=== PATIENT | female | born 1950 | race Caucasian/White ===

== ENCOUNTER 2017-01-01 17:45 | Inpatient (IN) | payer OTHER ==
[~2017-01-01] VITALS: Ht 172.7 cm; Wt 124.8 kg
--- NOTE | ~2017-01-01 | H ---
[facility] [place] [address] HISTORY AND PHYSICAL Name: RHYS GUAN Room #: 410-P ADM IN M.R.#: [id number] Admission: 01/01/17 Attend Phys: Moo Norris Discharge: Date of : 54 Report #: [id number] THIS REPORT FOR: //name// CC: FAM physician/PCP Moo Norris DATE OF SERVICE: 01/01/2017 ATTENDING PHYSICIAN: Moo Norris MD PRIMARY CARE PHYSICIAN: Dr. Barrington Pendleton. CHIEF COMPLAINT: Abdominal pain and distention. HISTORY OF PRESENT ILLNESS: The patient is a 66-year-old obese female who felt well over the last few weeks. She says actually all summer along, she has had decreased appetite, but really has not been losing any weight, but actually gaining weight. She has noticed increasing swelling in her lower extremities that has extended up into her abdomen in the last few weeks. Her abdomen is very bloated and firm and tender. She says for the last week, her pain has been getting worse to the point she went to the ER at [place] to be evaluated. She has not eaten anything in 2 days or taken any of her medications because of the pain. She says she has basically been feeling weak all over and just lying in bed. She has been having chills, but she is not sure if she was having fevers. She has been feeling short of breath. She has also been having some liquid stools in the last 3 days. She has been having about 5 loose stools per day that are watery. She denies seeing any blood in her stools. Denies any recent antibiotic use. She has had some intermittent vomiting about once a week for the last few months. Her pain has not improved with taking antacids. The worst of her abdominal pain is mostly in the right upper quadrant and epigastric areas. She denied any history of ulcers or GI bleeding. She has had a prior cholecystectomy. She denied any history of liver problems. In the ER at [facility], she had an ultrasound done, which showed liver cirrhosis, so she was sent to [facility] for GI evaluation. PAST MEDICAL HISTORY: Diabetes, hyperlipidemia, hypothyroidism, DVT, hypertension, GERD. PAST SURGICAL HISTORY: Right below knee amputation and cholecystectomy. ALLERGIES: None. HOME MEDICATIONS: Simvastatin 20 mg p.o. at bedtime, Norvasc 5 mg p.o. daily, lisinopril 10 mg p.o. at bedtime, aspirin 81 mg p.o. daily, tramadol 50-100 mg q. 6 hours p.r.n., Neurontin 300 mg t.i.d., ReQuip 2 mg at bedtime, Protonix 40 mg p.o. daily, metformin 500 mg b.i.d., Lantus insulin 60 units at bedtime, [address] [address] HISTORY AND PHYSICAL Name: RHYS GUAN Room #: 410-P [facility] IN M.R.#: [id number] Admission: 01/01/17 Attend Phys: Moo Norris Discharge: Date of : 54 Report #: [id number] Humalog insulin sliding scale, glipizide 10 mg p.o. b.i.d., levothyroxine 0.75 mg p.o. daily, vitamin C 1 tab daily, multivitamin and calcium carbonate daily. SOCIAL HISTORY: The patient is a never smoker, never drinker. Denies any drug use. She lives at home alone. She does use a wheelchair to get around because of her prior amputation. She is retired. 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 FAMILY HISTORY: Significant for cancer and heart disease. REVIEW OF SYSTEMS: Twelve-point review of systems was reviewed with the patient, otherwise negative unless stated in the HPI. PHYSICAL EXAMINATION: GENERAL: The patient is an alert, obese female, in no acute distress. VITAL SIGNS: Temperature is 98.0, heart rate 93, respirations 20, blood pressure 132/72, oxygen 98% on room air. HEENT: PERRLA. Sclerae are nonicteric. Oral mucosa is pink and dry. NECK: No JVD noted. CARDIOVASCULAR: Normal S1, S2. No murmurs, rubs or gallops. RESPIRATORY: Breath sounds are clear bilateral upper lobes. She is diminished in both bases, but no crackles. Breathing is nonlabored. ABDOMEN: Obese and distended. She does have some slight swelling in the right upper quadrant above her cholecystectomy scar and in this area, she is more tender. There are hypoactive bowel sounds and the entire abdomen is tender, but no guarding. VASCULAR: Has 3+ left lower extremity edema. She has slight edema in her right thigh above her stump sock. The swelling does go up in to the abdomen. On her right lower extremity, she does have a BKA. Her pedal pulse on the left is 2+. NEUROLOGIC: The patient is alert and oriented x 3. Speech is clear. She is moving all extremities equally. No focal neuro deficits noted. LABORATORY DATA AND DIAGNOSTICS: Lab work done at [facility] showed a WBC of 8.16, hemoglobin 14.0, platelets 216. Sodium 140, potassium 4.2, BUN 24, creatinine 1.2, glucose 96, AST is 62, ALT 38, lipase 79, bilirubin is 1.2. Lactate is 1.9. Ammonia level was 40. Abdominal ultrasound done at [facility] showed an enlarged liver measuring 19.5 cm. The liver is slightly lobulated with homogenous, decreased echogenicity. No distinct masses are seen. There is a moderately large amount of ascites. The main portal vein demonstrates normal flow towards the liver. The gallbladder is surgically absent and abdominal x-ray with PA of the chest showed normal bowel gas pattern, no evidence of free air. The lungs and pleura were normal, no acute process. ASSESSMENT AND PLAN: 1. New onset liver cirrhosis with ascites. Etiology for this is unknown. The patient will need further evaluation. Gastroenterology will be consulted. We [facility] [address] [place] [address] HISTORY AND PHYSICAL Name: RHYS GUAN Room #: 410-[facility] IN .R.#: [id number] Admission: 01/01/17 Attend Phys: Moo Norris Discharge: Date of : 54 Report #: [id number] will order a diagnostic and therapeutic paracentesis for the morning. She does have diffuse tenderness, which could be spontaneous bacterial peritonitis, but she does not have any leukocytosis and she is currently afebrile, so we will hold off on IV antibiotics until we get the abdominal fluid culture. Also, check hepatitis panel and alpha fetoprotein. We will keep her n.p.o. for that procedure. We will also further evaluate with CT of the abdomen. 2. Diabetes. Blood sugar is stable. She really has not been eating much in the last few days, so we will hold her oral hypoglycemics and just continue insulin per sliding scale, and if she starts eating, resume Levemir as at home. 3. Hypertension. Blood pressure is stable. Continue home meds and monitor. 4. Hypothyroidism. Continue Synthroid as at home. 5. Hyperlipidemia. Hold statin therapy due to elevated liver enzymes. 6. Deep venous thrombosis prophylaxis. Add sequential compression device to her left lower extremity. We will continue to follow the patient closely throughout the hospitalization and make changes based on clinical status. <ELECTRONICALLY SIGNED> By: DEIDRA Uriostegui 01/02/17 0658 [id number] DEIDRA Uriostegui /valentin
--- NOTE | ~2017-01-01 | P ---
[facility] [place] [address] PROCEDURE REPORT Name: RHYS GUNA Room #: 410-P ADM IN M.R.#: [id number] Admission: 01/01/17 Attend Phys: Barrington Ayala DO Discharge: Date of : 54 Report #: [id number] THIS REPORT FOR: //name// CC: [facility] physician/PCP Barrington Ayala DO DATE OF SERVICE: 01/07/2017 PROCEDURE: EGD with snare polypectomies. PATIENT OF: Barrington Ayala DO INDICATION FOR PROCEDURE: This patient had heme positive stool and anemia of undetermined etiology. The patient has newly diagnosed cirrhosis and we are searching for possible esophageal varices that may need to be treated to prevent esophageal bleeding. Informed consent for this procedure was obtained prior to the administration of any medication. The risks of the procedure, which include bleeding, perforation, infection, complications of sedation, and the possibility I could miss something have been explained to the patient and she has indicated her consent by signing. Propofol was slowly titrated before and during this procedure for the patient comfort by the anesthesia service. The BONDn upper videoscope was introduced through the upper esophageal sphincter and advanced under direct visualization to the distal second portion of the duodenum. Findings are noted on withdrawal of the scope. The duodenum is normal throughout its entirety. Pylorus, normal mucosa except for a small pyloric channel polyp that was removed in toto with a hot snare and sent to pathology lab. In the antrum, there were 4 polyps, all 8 mm or less in size by my eye that were all removed in toto with a hot snare and sent to pathology lab. Good hemostasis was noted after all polypectomies and one of these did get away from us and then went down into the duodenum where I could not retrieve it, but the other 3 were sent to pathology lab as well. I think all of the polyps went in the same container. Body, normal mucosa. Cardia and fundus, normal mucosa. I saw no evidence of any gastric varices. The stomach fully distends with air insufflation. Retroflex view did not reveal any hiatal hernia. The scope was withdrawn into the esophagus. The Z-line is appropriately located at the top of the gastric folds and appears normal. The patient does have 2 grade 2 nonbleeding without any stigmata of recent bleed esophageal varices that extends approximately 10 cm up into the middle esophagus. These are not treated because she has never had a variceal bleed that we are aware of. Above this level in the medication esophagus, the esophageal mucosa appears normal. The scope was withdrawn. The patient went to the recovery area in stable condition. She tolerated the procedure well. [address] [address] PROCEDURE REPORT Name: RHYS GUAN Room #: 410-P [facility] IN M.R.#: [id number] Admission: 01/01/17 Attend Phys: Barrington Ayala DO Discharge: Date of : 54 Report #: [id number] IMPRESSION: 1. Grade 2 esophageal varices extending from the Z-line up to 30 cm in the mid esophagus. These are nonbleeding with no stigmata of recent bleed. 2. No evidence of gastric varices. 3. Five antral and pyloric polyps were removed as above with a hot snare. Four of these were recovered and sent to pathology lab. All of them were 8 mm or less in size. RECOMMENDATION: My recommendations were to await the path report. We will start her on a clear liquid diet because we are going to give her a colonoscopy prep today for possible colonoscopy tomorrow. She is agreeable with this plan. We will also schedule her for a large volume paracentesis tomorrow with albumin replacement of her volume with 12.5 grams of albumin per 2 liters of ascitic fluid removed, so that we do not injure her kidneys with volume shifting. Then, we will keep her n.p.o. after midnight. We will obtain a consent for colonoscopy by Dr. Luu and Renata Moraes is already done this for me. I would recommend starting her on a beta maine as prophylaxis against first variceal bleed if okay with Dr. Michaud who has been managing her renal situation. <ELECTRONICALLY SIGNED> By: Candelaria Lorenzana DO 01/07/17 2018 1446 1732 Candelaria Lorenzana DO /nt
--- NOTE | ~2017-01-01 | S ---
[facility] [address] [place] [address] SURGICAL PATH RPT PROCEDURE Name: LALI GUAN Room #: 410-P DIS IN M.R.#: [id number] Admission: 01/01/17 Date of : 54 Discharge: 01/11/17 Report #: [id number] Path Case #: [id number] PATHOLOGY REPORT COLLECTION DATE: 01/07/2017 RECEIVED DATE: 01/08/2017 SUBMITTING PHYS: Dr. Candelaria Lorenzana OTHER PHYS: Dr. Barrington Norris * AMENDED (CORRECTED) REPORT * ADDENDUM REPORT (Order Date: 01/14/2017 12:39) ADDENDUM COMMENT: A properly controlled immunohistochemical stain is performed. AE1/AE3 (block A1): no abnormal staining The final diagnosis remains unchanged. (CLW:; 01/14/2017) Professional services performed by [facility] at [facility] [address] [place] [address] Technical services performed by [facility] at [address] [place] [address], [address] [place] [address]. ELECTRONICALLY SIGNED BY: Juliet Gutierrez M.D. DATE/TIME:01/14/2017 14:49 SPECIMEN(S) RECEIVED: A.Gastric polyps * * * * * * * * * * * * FINAL DIAGNOSIS: 01/13/2017 AMENDED REPORT: This amendment is issued to correct the date of . The remainder of the report remains unchanged. "Gastric polyps", biopsy: - Gastric fundic gland polyps, multiple, with extensive foveolar hyperplasia and reactive changes, irritated and focally ulcerated with numerous lamina propria focally congested blood vessels and focal intestinal metaplasia; no dysplasia seen. (See comment.) COMMENT: Deeper sections are performed. An immunohistochemical stain is also performed. A1/A3 (block A1) - pending [address] [address] SURGICAL PATH RPT PROCEDURE Name: LALI GUAN Room #: 410-P [facility] IN .R.#: [id number] Admission: 01/01/17 Date of : 54 Discharge: 01/11/17 Report #: [id number] Path Case #: [id number] Clinical and endoscopic correlation is recommended. (CLW:valeria; 01/12/2017) PATHOLOGIST: Juliet Gutierrez M.D. REPORT ELECTRONICALLY SIGNED BY: Juliet Gutierrez M.D. DATE/TIME: 01/13/2017 21:28 * * * * * * * * * * * * GROSS PATHOLOGY: The specimen is received in formalin labeled "Lali Guan, gastric polyps". Received are four segments of light arboleda to dark brown soft tissue ranging in size from 0.8 x 0.6 x 0.4 to 1.0 x 0.9 x 0.8 cm in greatest dimensions. The surgical margins are inked and each segment is bisected. The specimen is submitted entirely in cassettes A1 and A2. (CAA; 01/08/2017) CLINICAL HISTORY: Pre-op diagnosis: Newly diagnosed cirrhosis Post-op diagnosis: Gastric polyps, esophageal varices INITIAL CPT CODE(S): A; 10614, 54021 Professional services performed by [facility] at [facility] [address] [place] [address] Technical services performed by [facility] at [address] [place] [address], [address], [place] [address]. [facility] [address] [place] [address] PHONE: [phone] DIRECTOR: Melvin White M.D. * * * END OF REPORT * * *
--- NOTE | ~2017-01-01 | HC ---
[facility] [place] [address] CONSULTATION Name: RHYS GUAN Room #: 410-P ADM IN M.R.#: [id number] Admission: 01/01/17 Attend Phys: Barrington Ayala DO Discharge: Date of : 54 Report #: [id number] THIS REPORT FOR: //name// CC: [facility] physician/PCP Barrington Ayala DATE OF SERVICE: 01/04/2017 REASON FOR CONSULTATION: Elevated creatinine. HISTORY OF PRESENT ILLNESS: This is a 66-year-old patient with longstanding diabetes and triopathy presents with new onset liver disease, lower extremity swelling, cirrhosis on radiological studies, abnormal LFTs. She was reasonably well until the last several weeks, when she has had progressive nausea and vomiting as well as some URI symptoms. She was evaluated and found to have ascites and cirrhosis with increasing swelling of her legs, particularly her left leg as she has got the BKA on the right and her abdomen, subsequently has had the ascitic fluid tapped here in the hospital, was found to have a creatinine of 1.4 and then 1.5. No urinalysis done. PAST MEDICAL HISTORY: Longstanding diabetes mellitus at least 15 years' duration, at least 5 years before she was treated at all probably longer, bad peripheral neuropathy, status post right BKA for gangrene and known retinopathy, status post laser surgery to her eyes. She has also had previous cholecystectomy, history of DVT. HOME MEDICATIONS: Include amlodipine, aspirin, gabapentin, glipizide, Lantus and Humalog insulin, lisinopril, metformin, simvastatin, Synthroid, tramadol, ReQuip. SOCIAL HISTORY: Occasional cigarettes, very little alcohol use. Denies IV drugs. FAMILY HISTORY: Positive for both parents dying with heart attacks. REVIEW OF SYSTEMS: GENERAL: She has been feeling poorly. EYES: Her vision is reasonably good after the laser surgery in her right eye for retinopathy. ENDOCRINE: Positive for the diabetes. RESPIRATORY: Denies shortness of breath currently. CARDIAC: No chest pain, angina or palpitations or history of heart disease. GASTROINTESTINAL: Denies hematemesis or bloody stool, has had nausea and vomiting, overweight. GENITOURINARY: No dysuria. Good urinary stream. No hematuria or renal stones. [facility] [address] [place] [address] CONSULTATION Name: RHYS GUAN Room #: [address] [place] [address] IN M.R.#: [id number] Admission: 01/01/17 Attend Phys: Barrington Ayala DO Discharge: Date of : 54 Report #: [id number] NEUROLOGIC: Denies seizure, syncope or stroke. She has peripheral neuropathy symptoms both painful and numbness. MUSCULOSKELETAL: No arthritis. PHYSICAL EXAMINATION: GENERAL: This is a very overweight woman. She is in no acute distress, giving a good history. She is talkative. SKIN: Unremarkable. SKELETAL: Shows massive obesity. HEENT: Extraocular movements are full. No scleral icterus. Hearing intact. Mucous membranes are moist. NECK: Supple, no carotid bruits. CHEST: Clear to auscultation. HEART: Regular. ABDOMEN: Quite distended and obese. EXTREMITIES: Showing 2+ peripheral edema in the left leg, right BKA. LABORATORY DATA: Again, no urinalysis. Hepatitis markers are negative. Hemoglobin 11.4, platelets 140. Sodium 134, potassium 4.6, chloride 103, bicarbonate 26, BUN 25, creatinine 1.5. ASSESSMENT AND PLAN: She has elevated creatinine. I suspect this is diabetic nephropathy accompanying her triopathy. She probably has liver disease related to nonalcoholic steatohepatitis, although other possibilities need to be excluded for completeness. Paraprotein studies and urine protein studies will be sent. Probably will require loop diuretics. She has a very low albumin, I suspect she probably has quite a bit of proteinuria that will need to be assessed. By: [id number] King Lopez MD /nt
--- NOTE | ~2017-01-01 | CNG ---
[facility] [place] [address] CYTO-NONGYN REPORT PROCEDURE Name: FREIDALALI Room #: 410-P ADM IN M.R.#: [id number] Admission: 01/01/17 Date of : 54 Discharge: Report #: [id number] Path Case #: [id number] CYTOPATHOLOGY REPORT COLLECTION DATE: 01/01/2017 RECEIVED DATE: 01/04/2017 SUBMITTING PHYS: Lynsey Ryder OTHER PHYS: Dr. Moo Ayala CLINICAL HISTORY: New liver cirrhosis; abdominal pain, nausea, vomiting SPECIMEN(S) RECEIVED: A.Paracentesis fluid * * * * * * * * * * * * FINAL DIAGNOSIS: A. Paracentesis fluid: - No malignant epithelial cells identified. Paucicellular specimen with rare reactive mesothelial cells and predominantly chronic inflammatory cells present. PATHOLOGIST: Juliet Gutierrez M.D. REPORT ELECTRONICALLY SIGNED BY: Juliet Gutierrez M.D. DATE/TIME: 01/05/2017 10:17 * * * * * * * * * * * * GROSS PATHOLOGY: A. Paracentesis fluid: The specimen is submitted unfixed, labeled "Lali uGan". Received by the Cytology Department is 25 mL of clear yellow fluid. One ThinPrep slide and a formalin fixed cell block were prepared. (mm 01.04.2017) INJECTION MOLDER(S): NARGIS Cuello(ASCP)IAC INITIAL CPT CODE(S): A; 58966, 20357 Professional services performed by [facility] at [facility] [address], [place] [address] Technical services performed by [facility] at [address] [place] [address]., [address], [place], [place] [address]. [facility] [address] [place] [address], [address] [facility] [address] [place] [address] CYTO-NONGYN REPORT PROCEDURE Name: LALI GUAN Room #: 410-P ADM IN M.R.#: [id number] Admission: 01/01/17 Date of : 54 Discharge: Report #: [id number] Path Case #: [id number] [place] [id number] PHONE: [phone] DIRECTOR: Melvin White M.D. * * * END OF REPORT * * *
--- NOTE | ~2017-01-01 | HC ---
[facility] [place] [address] CONSULTATION Name: RHYS GUAN Room #: 410- ADM IN M.R.#: [id number] Admission: 01/01/17 Attend Phys: Moo Norris Discharge: Date of : 54 Report #: [id number] THIS REPORT FOR: //name// CC: JAVIER physician/PCP Barrington Harvey DATE OF SERVICE: 01/02/2017 HISTORY OF PRESENT ILLNESS: The patient is a 66-year-old female who reported increasing abdominal distention, left lower extremity edema as well as feeling poor in general over the last week. She also had an episode of nausea and vomiting, eventually went to the emergency room at [facility] on 01/01/2017. Routine labs showed elevated liver function tests and an ultrasound was performed, which showed the liver being enlarged to 19.5 cm, slightly lobulated with homogeneous decreased echogenicity suggesting cirrhosis. She also had a moderate to large amount of ascites, gallbladder is surgically absent. The patient states she has had no previous history of liver disease. She denies any significant alcohol use, last unit of alcohol was over 3 years ago, she states she had no history of significant use again. She has multiple medical problems and is on several different medications. She does have a history of diabetes. She is unaware if she has had a history of fatty liver disease in the past. The patient does report some loose stools recently. She denies any blood in her stools. Her last colonoscopy was in 2009, reportedly had a benign polyp removed at that time. There was no family history of colon cancer. No family history of liver disease. PAST MEDICAL HISTORY: Diabetes, previous history of right lower extremity [id number] amputation, previous cholecystectomy, hyperlipidemia, obesity, gastroesophageal reflux disease, hypertension, and previous history of DVT. ALLERGIES: No known drug allergies. MEDICATIONS AT HOME: Amlodipine, aspirin 81 mg, with calcium, gabapentin, glipizide, Humalog, Lantus, lisinopril, metformin, Protonix, Requip, simvastatin, Synthroid, tramadol, and vitamin C. SOCIAL HISTORY: Again, she denies any significant alcohol history now or in the past. She does report smoking at times. She has multiple tattoos. She denies any IV drug use. FAMILY HISTORY: Negative for colon cancer or inflammatory bowel disease. No family history of liver disease. REVIEW OF SYSTEMS: As per HPI. [facility] [address] [place] [address] CONSULTATION Name: RHYS GUAN Room #: 410-P [facility] IN .R.#: [id number] Admission: 01/01/17 Attend Phys: Moo Norris Discharge: Date of : 54 Report #: [id number] PHYSICAL EXAMINATION: VITAL SIGNS: Temperature is 98.0, pulse 73, blood pressure is 131/90, and respiratory rate is 18. GENERAL: She is alert and oriented x3, in no acute distress. HEENT: Sclerae nonicteric. Oropharynx clear. NECK: Supple without lymphadenopathy. CARDIOVASCULAR: Regular rate and rhythm. CHEST: Clear to auscultation bilaterally. ABDOMEN: Soft and obese. She is mildly distended. She is mildly tender in the periumbilical region. EXTREMITIES: +1 pitting edema to the left lower extremity. Right lower extremity shows changes of her right [id number] amputation. LABORATORY DATA: Paracentesis ascites fluid has been sent in, but is pending at this time. Sodium 138, potassium 4.2, chloride 105, bicarb 26, BUN 25, creatinine is 1.4, glucose 149. AST 50, total bili 0.8, calcium 8.4, alk phos 206, ALT 33, total protein 6.5 and albumin 2.0. WBC is 6.2, hemoglobin 11.7, platelet count is 155. Viral hepatitis panel was pending. Alpha-fetoprotein level also pending. CT scan of the abdomen and pelvis have been ordered and is pending at this time. She is currently drinking barium in preparation for her CT. ASSESSMENT AND PLAN: Ascites, recent ultrasound consistent with cirrhosis, no previous history of liver disease. I had a long discussion with the patient today regarding the findings, agree with further workup including a CT scan of the abdomen and pelvis, which is pending. The patient has no previous history of alcohol use, she has multiple tattoos, agree with viral hepatitis screening, which has been ordered as well as alpha-fetoprotein level. A paracentesis has been performed; however, the lab work is not available at this time, may need to consider full lab workup including autoimmune markers, hemochromatosis, Malik's disease, etc., also consider the possibility of malignancy. The patient has not had a hysterectomy in the past. CT will help to rule out any evidence of malignancy today. We will continue to follow and make further recommendations. Thank you for allowing me to participate in her care. <ELECTRONICALLY SIGNED> By: Zbigniew Luu MD 01/03/17 1102 [id number] [id number] Zbigniew Luu MD /nt
--- NOTE | ~2017-01-01 | O ---
[facility] [place] [address] OPERATIVE REPORT Name: RHYS GUAN Room #: 410-P ADM IN M.R.#: [id number] Admission: 01/01/17 Attend Phys: Barrington Ayala DO Discharge: Date of : 54 Report #: [id number] THIS REPORT FOR: //name// CC: JAVIER physician/PCP Barrington Ayala DATE OF SERVICE: 01/09/2017 PROCEDURE: Incomplete colonoscopy due to poor prep. INDICATION: Personal history of colon polyps. POSTPROCEDURAL FINDINGS: 1. Poor prep with residual solid stool within the colon to the extent examined. 2. Grade 2 internal hemorrhoids. DESCRIPTION OF PROCEDURE: Potential risks and benefits of colonoscopy were reviewed in detail with the patient prior to the procedure, informed consent was obtained. Following intravenous sedation with incremental dosages of IV propofol, a standard colonoscope was inserted into the rectum and advanced. Residual stool was present in the rectum and sigmoid. With inadequate insufflation and clogging of the scope, this was removed. With substitution for a pediatric colonoscope and insufflation of air, the scope could be slowly advanced, but solid stool was present throughout much of the descending colon and in the transverse colon. With inadequate visualization of mucosa, it was elected to withdraw the scope at this time, especially with frequent smearing of the lens which restricted visualization and required repeated cleansing. The scope was slowly withdrawn with no significant mucosal abnormalities. No evidence of old or new blood was present in the GI tract and stool was dark yellow to brown. Retroflexed views within the rectum revealed grade 2 internal hemorrhoids. RECOMMENDATIONS: Repeat colonoscopy may be recommended when clinical status is stable and could be arranged as an outpatient at any time. By: 1000 [id number] Amrit Colindres MD /nt
[2017-01-01 19:00] VITALS: BP 132/72
[2017-01-01] MEDS ORDERED: NORVASC5 MG PO (20:59)
[2017-01-01] MEDS ORDERED: ASPIRIN81 M2 PO (20:59)
[2017-01-01] MEDS ORDERED: FLINTSTONES +1 EACH PO (21:00)
[2017-01-01] MEDS ORDERED: GLIPIZIDE 10 MG10 MG PO (21:01)
[2017-01-01] MEDS ORDERED: NEURONTIN 300300 M1 PO (21:01)
[2017-01-01] MEDS ORDERED: HUMALOG100 UNIT/1 SUBQ (21:02)
[2017-01-01] MEDS ORDERED: LANTUS100 UNIT/M SUBQ (21:03)
[2017-01-01] MEDS ORDERED: LISINOPRIL10 MG PO (21:04)
[2017-01-01] MEDS ORDERED: METFORMIN HCL500 MG PO (21:05)
[2017-01-01] MEDS ORDERED: PROTONIX40 M1 PO (21:06)
[2017-01-01] MEDS ORDERED: REQUIP1 MG PO (21:06)
[2017-01-01] MEDS ORDERED: SIMVASTATIN20 MG PO (21:07)
[2017-01-01] MEDS ORDERED: TRAMADOL 50 MG50 MG PO (21:09)
[2017-01-01] MEDS ORDERED: SYNTHROID75 MCG PO (21:09)
[2017-01-01] MEDS ORDERED: VITAMINC500 PO (21:10)
[2017-01-02 00:46] VITALS: BP 133/77
[2017-01-02 04:08] VITALS: BP 139/64
[2017-01-02 04:48] LABS: HEMATOCRIT 35.2 % (37.0-47.0); HEMOGLOBIN 11.7 gm/dL (12.0-15.0); MCH 31.1 pg (26.0-34.0); MCHC 33.1 g/dL (28.0-37.0); MCV 93.9 fL (80.0-100.0); RBC 3.75 mil/uL (4.20-5.00); RDW 14.7 % (10.5-14.5); WBC 6.2 thou/uL (4.0-11.0)
[2017-01-02 05:04] LABS: CALCIUM 8.4 mg/dL (8.5-10.1); CREATININE 1.4 mg/dL (0.6-1.0); POTASSIUM 4.2 mmol/L (3.5-5.1); TOTAL BILIRUBIN 0.8 mg/dL (<0.1-1.0); TOTAL PROTEIN 6.5 g/dL (6.4-8.2)
[2017-01-02 07:59] VITALS: BP 131/90
[2017-01-02 10:40] LABS: CLARITY SLIGHTLY CLOUDY; COLOR YELLOW; TOTAL VOLUME 60 mL
[2017-01-02 11:00] LABS: BF NUCLEATED CELLS 85; BF RBC 251
[2017-01-02 12:55] LABS: MANUAL DIFF YES
[2017-01-02 12:58] LABS: BF COMMENTS 1 MONOCYTE; BF MACROPHAGE 26; BF NEUTROPHILS 26
[2017-01-02 16:22] VITALS: BP 118/64
[2017-01-02 19:12] LABS: HEPATITIS C VIRUS AB 0.2 (0.0-0.9)
[2017-01-02 19:24] VITALS: BP 106/50
[2017-01-03 03:48] LABS: HEMATOCRIT 31.6 % (37.0-47.0); HEMOGLOBIN 10.9 gm/dL (12.0-15.0); MCH 31.8 pg (26.0-34.0); MCHC 34.5 g/dL (28.0-37.0); MCV 92.3 fL (80.0-100.0); PLATELET COUNT 131 thou/uL (150-400); RBC 3.42 mil/uL (4.20-5.00); RDW 14.6 % (10.5-14.5); WBC 5.7 thou/uL (4.0-11.0)
[2017-01-03 04:08] LABS: ALBUMIN 1.8 g/dL (3.4-5.0); CALCIUM 8.1 mg/dL (8.5-10.1); CREATININE 1.4 mg/dL (0.6-1.0); POTASSIUM 4.7 mmol/L (3.5-5.1); TOTAL BILIRUBIN 0.6 mg/dL (<0.1-1.0); TOTAL PROTEIN 5.7 g/dL (6.4-8.2)
[2017-01-03 04:15] VITALS: BP 95/50
[2017-01-03 05:59] LABS: MANUAL DIFF YES
[2017-01-03 06:06] LABS: BODY FLUID ALBUMIN 0.5 g/dL (()); BODY FLUID LDH 51 IU/L (())
[2017-01-03 08:00] VITALS: BP 100/59
[2017-01-03 09:34] LABS: ABSOLUTE NEUTROPHILS 3.8 thou/uL (1.4-8.2); ANISOCYTOSIS 1+; POLYCHROMASIA OCCASIONAL; TOTAL CELL COUNT 100
[2017-01-03 17:46] VITALS: BP 103/59
[2017-01-03 19:27] VITALS: BP 100/54
[2017-01-04 04:03] VITALS: BP 103/68
[2017-01-04 05:48] LABS: CREATININE 1.5 mg/dL (0.6-1.0); HEMATOCRIT 34.7 % (37.0-47.0); HEMOGLOBIN 11.4 gm/dL (12.0-15.0); MCV 93.9 fL (80.0-100.0); PLATELET COUNT 140 thou/uL (150-400); POTASSIUM 4.6 mmol/L (3.5-5.1); RBC 3.69 mil/uL (4.20-5.00); RDW 14.7 % (10.5-14.5); WBC 5.5 thou/uL (4.0-11.0)
[2017-01-04 05:51] LABS: % SATURATION 25 % (20-39); IRON 44 ug/dL (50-170); MANUAL DIFF YES; TIBC 176 ug/dL (250-450); UIBC 132 ug/dL
[2017-01-04 07:40] VITALS: BP 106/61
[2017-01-04 09:05] LABS: ABSOLUTE NEUTROPHILS 3.6 thou/uL (1.4-8.2); LARGE PLATELETS OCCASIONAL; TOTAL CELL COUNT 100
[2017-01-04 16:00] VITALS: BP 107/62
[2017-01-04 19:45] VITALS: BP 116/66
[2017-01-04 20:46] LABS: PROT/CREAT RATIO 0.2; URINE PROTEIN-RANDOM* 11.8 mg/dL (<11.9)
[2017-01-04 20:54] LABS: URINE BILIRUBIN NEGATIVE (Negative); URINE BLOOD NEGATIVE (Negative); URINE COLOR YELLOW; URINE GLUCOSE-RANDOM* NEGATIVE (Negative); URINE KETONES NEGATIVE (Negative); URINE NITRITE NEGATIVE (Negative); URINE PROTEIN (DIPSTICK) NEGATIVE (Negative); URINE UROBILINOGEN 0.2 E.U./dl (0.2-1.0)
[2017-01-05 04:23] LABS: HEMATOCRIT 34.7 % (37.0-47.0); HEMOGLOBIN 11.5 gm/dL (12.0-15.0); MCH 31.3 pg (26.0-34.0); MCHC 33.3 g/dL (28.0-37.0); MCV 93.9 fL (80.0-100.0); PLATELET COUNT 143 thou/uL (150-400); RBC 3.69 mil/uL (4.20-5.00); RDW 14.4 % (10.5-14.5); WBC 5.7 thou/uL (4.0-11.0)
[2017-01-05 04:30] VITALS: BP 149/82
[2017-01-05 04:34] LABS: MANUAL DIFF YES
[2017-01-05 04:36] LABS: CREATININE 1.5 mg/dL (0.6-1.0); POTASSIUM 4.8 mmol/L (3.5-5.1)
[2017-01-05 05:23] LABS: ABSOLUTE NEUTROPHILS 4.2 thou/uL (1.4-8.2); TOTAL CELL COUNT 100
[2017-01-05 05:24] LABS: LARGE PLATELETS OCCASIONAL
[2017-01-05 09:49] VITALS: BP 110/58
[2017-01-05 10:12] LABS: BODY FLUID AMYLASE 11 U/L (()); BODY FLUID GLUCOSE 148 mg/dL (()); BODY FLUID PROTEIN 1.1 g/dL (())
[2017-01-05 16:08] LABS: CERULOPLASMIN 29.7 mg/dL (19.0-39.0)
[2017-01-05 20:00] VITALS: BP 109/66
[2017-01-06 04:10] LABS: ABSOLUTE NEUTROPHILS 4.6 thou/uL (1.4-8.2); HEMATOCRIT 35.3 % (37.0-47.0); HEMOGLOBIN 11.9 gm/dL (12.0-15.0); LYMPHOCYTES 12.7 % (24.0-44.0); MCH 31.4 pg (26.0-34.0); MCHC 33.8 g/dL (28.0-37.0); MONOCYTES 10.6 % (1.0-8.0); PLATELET COUNT 164 thou/uL (150-400); POLYS 72.7 % (36.0-66.0); RDW 14.6 % (10.5-14.5); WBC 6.4 thou/uL (4.0-11.0)
[2017-01-06 04:12] LABS: GLYCOHEMOGLOBIN (HGB A1C) 6.5 % (4.8-5.6)
[2017-01-06 04:14] LABS: MANUAL DIFF NO
[2017-01-06 04:20] LABS: CALCIUM 8.1 mg/dL (8.5-10.1); CREATININE 1.7 mg/dL (0.6-1.0); PHOSPHORUS 3.3 mg/dL (2.5-4.9); POTASSIUM 5.4 mmol/L (3.5-5.1)
[2017-01-06 06:03] VITALS: BP 127/73
[2017-01-06 09:21] VITALS: BP 117/65
[2017-01-06 14:10] LABS: MITOCHONDRIAL ANTIBODY 6.1 Units (0.0-20.0)
[2017-01-06 16:00] VITALS: BP 122/69
[2017-01-06 20:08] VITALS: BP 111/59
[2017-01-07] VITALS (8 sets, daily range): BP systolic 105–146; BP diastolic 59–95
[2017-01-07 06:11] LABS: CALCIUM 8.3 mg/dL (8.5-10.1); CREATININE 1.5 mg/dL (0.6-1.0); PHOSPHORUS 3.8 mg/dL (2.5-4.9)
[2017-01-07 11:08] LABS: A/G RATIO 0.7 (0.7-1.7); ALBUMIN 2.3 g/dL (2.9-4.4); ALPHA 1 0.2 g/dL (0.0-0.4); ALPHA 2 0.6 g/dL (0.4-1.0); BETA 1.1 g/dL (0.7-1.3); GAMMA 1.5 g/dL (0.4-1.8); M-SPIKE Not Observed g/dL (Not Observed)
[2017-01-07 14:39] LABS: HEMATOCRIT 35.6 % (37.0-47.0); HEMOGLOBIN 12.1 gm/dL (12.0-15.0); MCH 31.8 pg (26.0-34.0); MCV 93.4 fL (80.0-100.0); RBC 3.81 mil/uL (4.20-5.00); RDW 14.7 % (10.5-14.5); WBC 5.9 thou/uL (4.0-11.0)
[2017-01-07 14:52] LABS: CALCIUM 8.5 mg/dL (8.5-10.1); CREATININE 1.4 mg/dL (0.6-1.0); INR 1.1; POTASSIUM 5.4 mmol/L (3.5-5.1); PROTIME 11.3 Seconds (9.3-11.4)
[2017-01-08 04:02] LABS: ALBUMIN 2.3 g/dL (3.4-5.0); CALCIUM 8.6 mg/dL (8.5-10.1); CREATININE 1.4 mg/dL (0.6-1.0); POTASSIUM 4.9 mmol/L (3.5-5.1); TOTAL PROTEIN 6.6 g/dL (6.4-8.2)
[2017-01-08 04:07] LABS: HEMATOCRIT 35.7 % (37.0-47.0); HEMOGLOBIN 11.9 gm/dL (12.0-15.0); MCH 31.1 pg (26.0-34.0); MCHC 33.2 g/dL (28.0-37.0); MCV 93.9 fL (80.0-100.0); PLATELET COUNT 147 thou/uL (150-400); RBC 3.81 mil/uL (4.20-5.00); RDW 15.2 % (10.5-14.5); WBC 7.2 thou/uL (4.0-11.0)
[2017-01-08 04:09] VITALS: BP 135/65
[2017-01-08 04:10] LABS: MANUAL DIFF YES
[2017-01-08 07:33] VITALS: BP 129/77
[2017-01-08 08:42] LABS: ABSOLUTE NEUTROPHILS 5.8 thou/uL (1.4-8.2); PLATELET ESTIMATE NORMAL; TOTAL CELL COUNT 100
[2017-01-08 11:15] VITALS: BP 146/42
[2017-01-08 15:29] VITALS: BP 151/73
[2017-01-08 16:00] VITALS: BP 116/72
[2017-01-08 20:58] VITALS: BP 109/82
[2017-01-09 04:20] VITALS: BP 98/50
[2017-01-09 08:08] VITALS: BP 126/76
[2017-01-09 16:56] VITALS: BP 104/66
[2017-01-09 20:00] VITALS: BP 92/59
[2017-01-10] VITALS: BP 90/59
[2017-01-10 04:00] VITALS: BP 89/41
[2017-01-10 04:41] LABS: ABSOLUTE NEUTROPHILS 5.6 thou/uL (1.4-8.2); BASOPHILS 0.7 % (0.0-2.0); EOSINOPHILS 2.4 % (0.0-3.0); HEMATOCRIT 32.4 % (37.0-47.0); HEMOGLOBIN 10.8 gm/dL (12.0-15.0); LYMPHOCYTES 15.7 % (24.0-44.0); MCH 31.3 pg (26.0-34.0); MCHC 33.3 g/dL (28.0-37.0); MCV 94.1 fL (80.0-100.0); MONOCYTES 11.5 % (1.0-8.0); PLATELET COUNT 175 thou/uL (150-400); POLYS 69.7 % (36.0-66.0); RBC 3.45 mil/uL (4.20-5.00); RDW 14.8 % (10.5-14.5)
[2017-01-10 04:46] LABS: CREATININE 1.6 mg/dL (0.6-1.0)
[2017-01-10 04:48] LABS: MANUAL DIFF NO
[2017-01-10 04:51] LABS: POTASSIUM 6.2 mmol/L (3.5-5.1)
[2017-01-10 08:00] VITALS: BP 87/49
[2017-01-10 15:55] VITALS: BP 93/47
[2017-01-10 19:42] VITALS: BP 103/59
[2017-01-11 03:53] VITALS: BP 117/72
[2017-01-11 05:15] LABS: ABSOLUTE NEUTROPHILS 4.6 thou/uL (1.4-8.2); BASOPHILS 0.8 % (0.0-2.0); EOSINOPHILS 3.7 % (0.0-3.0); HEMATOCRIT 35.2 % (37.0-47.0); HEMOGLOBIN 11.9 gm/dL (12.0-15.0); LYMPHOCYTES 18.9 % (24.0-44.0); MCH 31.7 pg (26.0-34.0); MCHC 33.7 g/dL (28.0-37.0); MCV 94.1 fL (80.0-100.0); MONOCYTES 10.7 % (1.0-8.0); PLATELET COUNT 191 thou/uL (150-400); POLYS 65.9 % (36.0-66.0); RBC 3.74 mil/uL (4.20-5.00); RDW 14.8 % (10.5-14.5); WBC 6.9 thou/uL (4.0-11.0)
[2017-01-11 05:22] LABS: CALCIUM 8.3 mg/dL (8.5-10.1); CREATININE 1.5 mg/dL (0.6-1.0); MANUAL DIFF NO; POTASSIUM 4.9 mmol/L (3.5-5.1)
[2017-01-11 07:40] VITALS: BP 128/67
[2017-01-11] MEDS ORDERED: INDERAL LA60 MG PO (09:00)
[2017-01-11] MEDS ORDERED: TRAMADOL 50 MG50 MG PO (09:01)
[2017-01-11] MEDS ORDERED: ALDACTONE25 MG PO (09:01)
[2017-01-11 10:34] VITALS: BP 128/67
== END 2017-01-11 14:08 | disposition home or self-care (01) | DRG 441 ==
LOC: 4N 17:45 → EDBD 18:59 → ENTRNSPT 01-11 13:35 → EDTRNSPTSTS 01-11 13:39 → 4N 01-11 14:08
PROVIDERS: Family Medicine; Hospitalist; Internal Medicine Nephrology; Nurse Practitioner; Nurse Practitioner Acute Care; Specialist
PROC: 0W9G3ZZ Drainage of Peritoneal Cavity, Percutaneous Approach (ICD-10-PCS; 2017-01-02)
PROC: 0DB78ZZ Excision of Stomach, Pylorus, Via Natural or Artificial Opening Endoscopic (ICD-10-PCS; principal; 2017-01-07)
PROC: 0DJD8ZZ Inspection of Lower Intestinal Tract, Via Natural or Artificial Opening Endoscopic (ICD-10-PCS; 2017-01-09)
DX: K72.90 Hepatic failure, unspecified without coma (principal); E43 Unspecified severe protein-calorie malnutrition; R18.8 Other ascites; K76.6 Portal hypertension; Z68.41 Body mass index [BMI] 40.0-44.9, adult; I85.10 Secondary esophageal varices without bleeding; K74.60 Unspecified cirrhosis of liver; E66.9 Obesity, unspecified; E78.5 Hyperlipidemia, unspecified; E78.00 Pure hypercholesterolemia, unspecified; E11.22 Type 2 diabetes mellitus with diabetic chronic kidney disease; I12.9 Hypertensive chronic kidney disease with stage 1 through stage 4 chronic kidney disease, or unspecified chronic kidney disease; N18.9 Chronic kidney disease, unspecified; K31.7 Polyp of stomach and duodenum; K64.8 Other hemorrhoids; K59.00 Constipation, unspecified; E11.43 Type 2 diabetes mellitus with diabetic autonomic (poly)neuropathy; K31.84 Gastroparesis; E87.5 Hyperkalemia; K76.0 Fatty (change of) liver, not elsewhere classified; E03.9 Hypothyroidism, unspecified; K21.9 Gastro-esophageal reflux disease without esophagitis; G25.81 Restless legs syndrome; Z60.2 Problems related to living alone; Z90.49 Acquired absence of other specified parts of digestive tract; Z86.010 Personal history of colon polyps; Z86.718 Personal history of other venous thrombosis and embolism; Z89.511 Acquired absence of right leg below knee; Z79.899 Other long term (current) drug therapy; Z79.4 Long term (current) use of insulin; Z79.84 Long term (current) use of oral hypoglycemic drugs; Z80.9 Family history of malignant neoplasm, unspecified; Z82.49 Family history of ischemic heart disease and other diseases of the circulatory system; Z91.81 History of falling; Z87.891 Personal history of nicotine dependence
CPT/HCPCS: 10790; 62110; 62900; 70005

== ENCOUNTER 2017-01-29 20:22 | Inpatient (IN) | payer OTHER ==
[~2017-01-29] VITALS: Ht 172.7 cm; Wt 128.4 kg
--- NOTE | ~2017-01-29 | H ---
[facility] [place] [address] HISTORY AND PHYSICAL Name: RHYS GUAN Room #: 410-P ADM IN M.R.#: [id number] Admission: 01/29/17 Attend Phys: Radha Ayala DO Discharge: Date of : 54 Report #: [id number] THIS REPORT FOR: //name// CC: RADHA Ayala DICTATED BY: Lynsey GAY ATTENDING PHYSICIAN: Dr. Ayala. PRIMARY CARE PHYSICIAN: Dr. Radha Pendleton. CHIEF COMPLAINT: Abdominal distension. HISTORY OF PRESENT ILLNESS: The patient is a 66-year-old female who was recently seen here at [facility] and diagnosed with liver cirrhosis. This was new diagnosis for her. Her workup included initial paracentesis and the liver serology was negative. There was no malignancy on the pathology. She did have paracentesis and 5.8 L of fluid was removed. She had an EGD, which showed esophageal varices, grade 2 and was started on propranolol. There was no malignancy noted on that pathology either. She was set up to have an outpatient colonoscopy. She has not had a liver biopsy. It was felt that her liver cirrhosis was likely caused by fatty liver disease. She has no history of alcoholism. She has been taking her meds as prescribed. She has not been drinking any excess fluids and actually has not had much of an appetite since she was discharged from here. She denies any fevers, but has been feeling hot, denies chills. She had noted increasing abdominal distention over the last 3 days to the point it was causing her some back pain, chest heaviness and shortness of breath. She has been taking her Lasix as well. She initially presented at [facility], and they transferred her here because they would not have Interventional Radiology over the weekend to perform another paracentesis. She is currently requesting some pain medication for her abdominal pain. She does feel like the oxygen has helped her breathing. She denies any underlying lung issues. PAST MEDICAL HISTORY: Diabetes, hypertension, hyperlipidemia, hypothyroidism, GERD, chronic kidney disease, stage 3, recently diagnosis of liver steroid with ascites, esophageal varices. PAST SURGICAL HISTORY: Cholecystectomy and a right below knee amputation. ALLERGIES: No known drug allergies. HOME MEDICATIONS: Simvastatin 20 mg p.o. at bedtime, amlodipine 5 mg p.o. daily, lisinopril 10 mg p.o. at bedtime, spironolactone 50 mg p.o. daily, aspirin 81 mg p.o. daily, tramadol 50-100 mg q. 6 hours p.r.n. pain, Neurontin 300 mg b.i.d., Requip 2 mg at bedtime, and Protonix 40 mg daily, metformin [address] [address] HISTORY AND PHYSICAL Name: RHYS GUAN Room #: 410-P [facility] IN M.R.#: [id number] Admission: 01/29/17 Attend Phys: Radha Ayala DO Discharge: Date of : 54 Report #: [id number] mg b.i.d., Lantus insulin 60 units at bedtime, NovoLog insulin per sliding scale, glipizide 10 mg b.i.d., levothyroxine 75 mcg daily, vitamin C 1 tab daily and multivitamin with calcium daily. SOCIAL HISTORY: The patient is a never smoker. She denies any history of alcohol use. She denies drug use. She lives alone. She is retired. She usually gets around in a wheelchair because of her amputation. FAMILY HISTORY: Significant for cancer and heart disease. REVIEW OF SYSTEMS: Twelve-point review of systems was reviewed with the patient, otherwise negative unless stated in the HPI. PHYSICAL EXAMINATION: GENERAL: The patient is an alert, obese female, in no acute distress. VITAL SIGNS: Temperature on arrival was 36.7, heart rate 93, respirations 18, blood pressure 132/69, and oxygen 100% on room air. HEENT: PERRLA. Sclerae is nonicteric. Oral mucosa is pink and moist. NECK: Supple. No JVD noted. CARDIAC: Normal S1, S2. No murmurs, rubs or gallops. RESPIRATORY: Breath sounds are clear bilaterally. No wheezing or rhonchi. She is somewhat diminished in both bases. Breathing is nonlabored. ABDOMEN: Obese and very distended. It is somewhat firm across the mid abdomen. It is slightly tender throughout without any specific areas of point tenderness. She does not have any guarding. Bowel sounds are positive. VASCULAR: She has a prior right below knee amputation. On the left, there is 3+ lower extremity edema. NEUROLOGIC: The patient is alert and oriented x 3. Speech is clear. She is answering questions appropriately and following commands. No focal weakness noted. PSYCHIATRIC: The patient is calm and cooperative. LABS AND DIAGNOSTICS: Lab work at [facility] showed a WBC of 9.16, hemoglobin 13, platelets 197. Sodium 135, potassium 4.7, BUN 19, creatinine 1.3, glucose 202. Troponins negative. BNP is 395. INR is 1.19. AST 55, ALT 44, alkaline phos 353, albumin 2.4. EKG shows sinus tachycardia. Chest x-ray is negative. Venous Dopplers negative in the left lower extremity. Magnesium 2.1. ASSESSMENT AND PLAN: 1. Recurrent ascites. We will have IR perform another paracentesis in the morning. She just had diagnostic paracentesis, so that would not need to be repeated, we will just perform a therapeutic paracentesis. We will have GI reevaluate as well, as her meds may need to be adjusted. Continue home spironolactone dose. 2. Liver cirrhosis. This was recently diagnosed. She does have sequelae of esophageal varices seen on EGD as well as the above ascites. Her liver enzymes [facility] [address] [place] [address] HISTORY AND PHYSICAL Name: RHYS GUAN Room #: [address] [place] [address] [place] .R.#: [id number] Admission: 01/29/17 Attend Phys: Radha Ayala DO Discharge: Date of : 54 Report #: [id number] are normal. Continue home meds. Consult GI. 3. Diabetes. Blood sugar is slightly elevated. Continue home oral meds and Levemir and add sliding scale insulin and Accu-Cheks. 4. Hypertension. Blood pressure is stable. Continue home meds and monitor. 5. Hypothyroidism. Continue Synthroid. 6. Chronic kidney disease, stage 3. Creatinine is stable from previous. 7. Abdominal pain, likely due to ascites. Her white count is normal and she is not febrile, so SBP is doubtful. We will check cell count on the abdominal fluid. 8. Obesity. 9. DVT prophylaxis, place SCD on the left leg. We will continue to follow the patient closely throughout the hospitalization and make changes based on clinical status. <ELECTRONICALLY SIGNED> By: Radha Ayala DO 01/30/17 1023 [id number] [id number] Radha Ayala DO /nt
[~2017-01-29 20:22] MED LIST: ALDACTONE25 MG PO; ASPIRIN81 M2 PO; FLINTSTONES +1 EACH PO; GLIPIZIDE 10 MG10 MG PO; HUMALOG100 UNIT/1 SUBQ; INDERAL LA60 MG PO; LANTUS100 UNIT/M SUBQ; LISINOPRIL10 MG PO; METFORMIN HCL500 MG PO; NEURONTIN 300300 M1 PO; NORVASC5 MG PO; PROTONIX40 M1 PO; REQUIP1 MG PO; SIMVASTATIN20 MG PO; SYNTHROID75 MCG PO; TRAMADOL 50 MG50 MG PO; VITAMINC500 PO
[2017-01-29 22:37] VITALS: BP 132/69
[2017-01-30 03:57] VITALS: BP 129/59
[2017-01-30 04:47] LABS: HEMATOCRIT 33.4 % (37.0-47.0); HEMOGLOBIN 11.3 gm/dL (12.0-15.0); MCH 31.6 pg (26.0-34.0); MCHC 33.9 g/dL (28.0-37.0); RBC 3.6 mil/uL (4.20-5.00); WBC 8.2 thou/uL (4.0-11.0)
[2017-01-30 04:58] LABS: INR 1.2; PROTIME 11.9 Seconds (9.3-11.4)
[2017-01-30 05:03] LABS: ALBUMIN 1.9 g/dL (3.4-5.0); CALCIUM 8.6 mg/dL (8.5-10.1); CREATININE 1.5 mg/dL (0.6-1.0); POTASSIUM 4.7 mmol/L (3.5-5.1); TOTAL BILIRUBIN 0.8 mg/dL (<0.1-1.0); TOTAL PROTEIN 6.2 g/dL (6.4-8.2)
[2017-01-30 07:08] VITALS: BP 105/57
[2017-01-30 11:03] LABS: BF NUCLEATED CELLS 68; BF RBC 357
[2017-01-30 11:11] LABS: CLARITY CLEAR; COLOR YELLOW; TOTAL VOLUME 45 mL
[2017-01-30] MEDS ORDERED: INDERAL LA60 MG PO (11:37)
[2017-01-30 13:22] LABS: MANUAL DIFF YES
[2017-01-30 13:23] LABS: BF COMMENTS 4; BF MACROPHAGE 34; BF NEUTROPHILS 18
[2017-01-30 16:38] VITALS: BP 113/66
[2017-01-30 20:30] VITALS: BP 120/66
[2017-01-31 05:30] VITALS: BP 117/59
[2017-01-31 08:00] VITALS: BP 123/60
[2017-01-31 11:29] VITALS: BP 123/60
== END 2017-01-31 12:05 | disposition home or self-care (01) | DRG 432 ==
LOC: 4N 20:22
PROVIDERS: Nurse Practitioner Acute Care
PROC: 0W9G3ZZ Drainage of Peritoneal Cavity, Percutaneous Approach (ICD-10-PCS; principal; 2017-01-30)
DX: K74.60 Unspecified cirrhosis of liver (principal); E43 Unspecified severe protein-calorie malnutrition; Z68.41 Body mass index [BMI] 40.0-44.9, adult; R18.8 Other ascites; E78.5 Hyperlipidemia, unspecified; E03.9 Hypothyroidism, unspecified; K21.9 Gastro-esophageal reflux disease without esophagitis; I12.9 Hypertensive chronic kidney disease with stage 1 through stage 4 chronic kidney disease, or unspecified chronic kidney disease; N18.3 Chronic kidney disease, stage 3 (moderate); E11.22 Type 2 diabetes mellitus with diabetic chronic kidney disease; E66.9 Obesity, unspecified; E11.40 Type 2 diabetes mellitus with diabetic neuropathy, unspecified; G25.81 Restless legs syndrome; E78.00 Pure hypercholesterolemia, unspecified; Z90.49 Acquired absence of other specified parts of digestive tract; Z89.511 Acquired absence of right leg below knee; Z80.9 Family history of malignant neoplasm, unspecified; Z87.891 Personal history of nicotine dependence; Z86.718 Personal history of other venous thrombosis and embolism; Z82.49 Family history of ischemic heart disease and other diseases of the circulatory system
CPT/HCPCS: 10790

== ENCOUNTER 2017-03-04 00:01 | Inpatient (IN) | payer OTHER ==
[2017-03-03 23:34] VITALS: BP 123/90
[2017-03-03 23:45] VITALS: BP 131/86
[2017-03-04] VITALS (41 sets, daily range): BP systolic 98–138; BP diastolic 51–113
[~2017-03-04] VITALS: Ht 172.7 cm; Wt 128.1 kg
--- NOTE | ~2017-03-04 | 2DMMODE ---
[facility] [address] [place] [address] 2 D/M-MODE ECHOCARDIOGRAM Name: RHYS GUAN Room #: 239-P ADM IN .R.#: [id number] Admission: 03/04/17 Attend Phys: Moo Amador Discharge: Date of : 54 Date of Service: 03/04/17 1530 Report #: [id number] THIS REPORT FOR: //name// APPROVED REPORT Study performed: 03/04/2017 14:31:27 EXAM: Comprehensive 2D, Doppler, and color-flow Echocardiogram Patient Location: ICU Room #: 239 Status: routine BSA: 2.36 HR: 87 bpm BP: 120/75 mmHg Rhythm: Irregular Other Information Study Quality: Good Indications Recurrent ascites. Elevated troponin. Evaluate for right heart failure. Hx: morbid obesity, HTN, HLP, DM 2D Dimensions RVDd: 33.33 mm LVEF(%): 50.42 (>50%) IVSd: 9.90 (7-11mm) LVOT Diam: 21.13 (18-24mm) LVDd: 50.48 mm PWd: 8.95 (7-11mm) Ascending Ao: 31.12 (22-36mm) LVDs: 37.48 (25-40mm) Aortic Root: 34.52 mm Roman's LVEF: 50.42 % Volumes Left Atrial Volume (Systole) Single Plane 4CH: 84.62 mL Single Plane 2CH: 118.60 mL LA ESV Index: 46.00 mL/m2 Aortic Valve AoV Peak Bhargav.: 1.18 m/s AO Peak Gr.: 5.57 mmHg LVOT Max P.43 mmHg LVOT Max V: 1.05 m/s KASIA Vmax: 3.12 cm2 Mitral Valve E/A Ratio: 1.8 [facility] [place] [address] 2 D/M-MODE ECHOCARDIOGRAM Name: RHYS GUAN Room #: 239-P [facility] IN ..#: [id number] Admission: 03/04/17 Attend Phys: Moo Amador Discharge: Date of : 54 Date of Service: 03/04/17 1530 Report #: [id number] MV Decel. Time: 146.95 ms MV E Max Bhargav.: 0.93 m/s MV A Bhargav.: 0.52 m/s MV PHT: 42.61 ms IVRT: 87.66 ms Pulmonary Valve PV Peak Bhargav.: 0.77 m/s PV Peak Gr.: 2.35 mmHg Pulmonary Vein P Vein S: 0.66 m/s P Vein D: 0.36 m/s P Vein S/D Ratio: 1.83 Tricuspid Valve TR Peak Bhargav.: 2.20 m/s TR Peak Gr.: 19.33 mmHg Left Ventricle The left ventricle is normal size. There is normal left ventricular wall thickness. Left ventricular systolic function is normal. LVEF is 50-55%. Moderate diastolic dysfunction is present (pseudonormal filling). Right Ventricle The right ventricle is normal size. Right ventricle is mildly hypokinetic. Right ventricle is moderately hypokinetic. Right ventricle is mildly hypokinetic. Right ventricle is hypokinetic. Right ventricular systolic function is grossly normal. Right ventricular systolic function could not be assessed. Atria Left atrium is moderate to severely dilated. The right atrium size is normal. Aortic Valve The Aortic valve is mildly sclerotic. Trace aortic regurgitation. There is no aortic valvular stenosis. Mitral Valve Mitral valve leaflets are mildly thickened and calcified. Trace mitral regurgitation. No evidence of mitral valve stenosis. Tricuspid Valve The tricuspid valve is normal in structure. Trace tricuspid [facility] [address] [place] [address] 2 D/M-MODE ECHOCARDIOGRAM Name: RHYS GUAN Room #: 239-P [facility] [place] [facility]#: [id number] Admission: 03/04/17 Attend Phys: Moo Amador Discharge: Date of : 54 Date of Service: 03/04/17 1530 Report #: [id number] regurgitation. Estimated PAP is 19mmHg plus the right atrial pressure. Pulmonic Valve The pulmonary valve is normal in structure. Mild pulmonic regurgitation. Great Vessels The aortic root is normal in size. The ascending aorta is normal in size. The inferior vena cava is not well visualized. Pericardium There is no pericardial effusion. <Conclusion> The left ventricle is normal size. LVEF is 50-55%. The Aortic valve is mildly sclerotic. Trace aortic regurgitation. There is no aortic valvular stenosis. Mitral valve leaflets are mildly thickened and calcified. Trace mitral regurgitation. The tricuspid valve is normal in structure. Trace tricuspid regurgitation. Estimated PAP is 19mmHg plus the right atrial pressure. The pulmonary valve is normal in structure. Mild pulmonic regurgitation. There is no pericardial effusion. <ELECTRONICALLY SIGNED> By: Shade Jefferson MD 03/04/17 1530 1530 1530 Shade Jefferson MD /INF
[2017-03-04 01:40] LABS: HEMATOCRIT 33.8 % (37.0-47.0); MCH 30.4 pg (26.0-34.0); MCHC 32.6 g/dL (28.0-37.0); MCV 93.3 fL (80.0-100.0); PLATELET COUNT 170 thou/uL (150-400); RBC 3.62 mil/uL (4.20-5.00); RDW 15.7 % (10.5-14.5); WBC 10.8 thou/uL (4.0-11.0)
[2017-03-04 01:41] LABS: URINE BILIRUBIN NEGATIVE (Negative); URINE BLOOD 1+ (Negative); URINE COLOR YELLOW; URINE GLUCOSE-RANDOM* NEGATIVE (Negative); URINE KETONES NEGATIVE (Negative); URINE LEUKOCYTES-REFLEX NEGATIVE (Negative); URINE PROTEIN (DIPSTICK) 1+ (Negative); URINE SPECIFIC GRAVITY 1.025 (1.003-1.035)
[2017-03-04 01:45] LABS: MANUAL DIFF YES
[2017-03-04 01:48] LABS: CALCIUM 8.2 mg/dL (8.5-10.1); CREATININE 1.4 mg/dL (0.6-1.0); POTASSIUM 4.2 mmol/L (3.5-5.1)
[2017-03-04 01:56] LABS: ALBUMIN 1.8 g/dL (3.4-5.0); TOTAL BILIRUBIN 0.8 mg/dL (<0.1-1.0); TOTAL PROTEIN 5.9 g/dL (6.4-8.2); TROPONIN-I 0.1 ng/mL (<0.06)
[2017-03-04 02:11] LABS: SQUAMOUS >10 Many /LPF (0-3)
[2017-03-04 02:12] LABS: AMORPHOUS URATES Moderate /LPF (None Seen); CASTS None Seen /LPF (None Seen); URINE WBC-REFLEX 0-5 Rare /HPF (0-5)
[2017-03-04 07:36] LABS: INR 1.2; PROTIME 12.2 Seconds (9.3-11.4)
[2017-03-04 08:08] LABS: ABSOLUTE NEUTROPHILS 9.1 thou/uL (1.4-8.2); ANISOCYTOSIS 1+; TOTAL CELL COUNT 100
[2017-03-05] VITALS (11 sets, daily range): BP systolic 89–146; BP diastolic 45–85
[2017-03-05 03:43] LABS: ALBUMIN 1.6 g/dL (3.4-5.0); CALCIUM 7.8 mg/dL (8.5-10.1); CREATININE 1.2 mg/dL (0.6-1.0); POTASSIUM 4.3 mmol/L (3.5-5.1); TOTAL BILIRUBIN 0.5 mg/dL (<0.1-1.0); TOTAL PROTEIN 5.4 g/dL (6.4-8.2)
[2017-03-05 03:45] LABS: CHOLESTEROL 118 mg/dL (<200); HDL CHOLESTEROL 31 mg/dL (>40); HEMATOCRIT 31.6 % (37.0-47.0); HEMOGLOBIN 10.5 gm/dL (12.0-15.0); LDL CHOLESTEROL 70 mg/dL (<100); MCH 31.1 pg (26.0-34.0); MCHC 33.2 g/dL (28.0-37.0); MCV 93.6 fL (80.0-100.0); RBC 3.37 mil/uL (4.20-5.00); RDW 15.2 % (10.5-14.5); SERUM ASSESSMENT Clear; TC:HDL 3.8 Ratio (Not establshd); TRIGLYCERIDE 87 mg/dL (<150); VLDL 17 mg/dL (<40); WBC 8.4 thou/uL (4.0-11.0)
[2017-03-06 00:32] VITALS: BP 106/60
[2017-03-06 05:29] VITALS: BP 108/68
[2017-03-06 08:30] VITALS: BP 109/55
[2017-03-06] MEDS ORDERED: SPIRONOLACTONE25 M1 PO (08:44)
[2017-03-06] MEDS ORDERED: PROPRANOLOL 1010 MG PO (08:44)
[2017-03-06 11:40] VITALS: BP 109/55
[2017-03-06 12:28] VITALS: BP 109/55
[2017-03-06 13:03] VITALS: BP 109/55
== END 2017-03-06 15:20 | disposition home health service (06) | DRG 405 ==
LOC: ICU 00:01 → 4S 00:14
PROVIDERS: Hospitalist; Internal Medicine Gastroenterology; Nurse Practitioner Family
PROC: 0W9G3ZZ Drainage of Peritoneal Cavity, Percutaneous Approach (ICD-10-PCS; principal; 2017-03-04)
PROC: 06183J4 Bypass Portal Vein to Hepatic Vein with Synthetic Substitute, Percutaneous Approach (ICD-10-PCS; 2017-03-05)
DX: K74.60 Unspecified cirrhosis of liver (principal); E43 Unspecified severe protein-calorie malnutrition; R18.8 Other ascites; Z68.41 Body mass index [BMI] 40.0-44.9, adult; N17.9 Acute kidney failure, unspecified; I85.10 Secondary esophageal varices without bleeding; E87.2 Acidosis; E66.9 Obesity, unspecified; K21.9 Gastro-esophageal reflux disease without esophagitis; D64.9 Anemia, unspecified; E03.9 Hypothyroidism, unspecified; F41.8 Other specified anxiety disorders; E11.40 Type 2 diabetes mellitus with diabetic neuropathy, unspecified; G25.81 Restless legs syndrome; Z60.2 Problems related to living alone; E11.649 Type 2 diabetes mellitus with hypoglycemia without coma; K76.0 Fatty (change of) liver, not elsewhere classified; K31.7 Polyp of stomach and duodenum; I12.9 Hypertensive chronic kidney disease with stage 1 through stage 4 chronic kidney disease, or unspecified chronic kidney disease; E11.22 Type 2 diabetes mellitus with diabetic chronic kidney disease; N18.3 Chronic kidney disease, stage 3 (moderate); E78.00 Pure hypercholesterolemia, unspecified; Z89.511 Acquired absence of right leg below knee; Z86.718 Personal history of other venous thrombosis and embolism; Z90.49 Acquired absence of other specified parts of digestive tract
CPT/HCPCS: 10100; 62110; 70005